=== PATIENT | male | born 1995 | race African-American/Black ===

== ENCOUNTER 2018-08-19 17:46 | Inpatient (IN) | payer OTHER ==
[~2018-08-19] VITALS: Ht 190.5 cm; Wt 88.5 kg
[2018-08-19 20:12] LABS: HEMATOCRIT 41.8 % (42.0-52.0); HEMOGLOBIN 13.4 g/dl (13.5-17.5); MEAN CORPUSCULAR HEMOGLOBIN 27.4 pg (27.0-33.0); MEAN CORPUSCULAR HGB CONC 32.1 g/dl (32.0-36.5); MEAN CORPUSCULAR VOLUME 85.5 fl (80.0-96.0); PLATELET COUNT, AUTOMATED 215 10^3/uL (150-450); RED BLOOD COUNT 4.89 10^6/uL (4.30-6.10); WHITE BLOOD COUNT 5.5 10^3/uL (4.0-10.0)
[2018-08-19 20:42] LABS: AMPHETAMINES LEVEL URINE NEGATIVE (NEGATIVE); BARBITURATES URINE NEGATIVE (NEGATIVE); BENZODIAZEPINES URINE NEGATIVE (NEGATIVE); CANNABINOIDS URINE NEGATIVE (NEGATIVE); COCAINE METABOLITE URINE NEGATIVE (NEGATIVE); METHADONE URINE NEGATIVE (NEGATIVE); OPIATES URINE NEGATIVE (NEGATIVE); PHENCYCLIDINE URINE NEGATIVE (NEGATIVE)
[2018-08-19 21:04] LABS: ACETAMINOPHEN LEVEL < 2.0 UG/ML (10.0-30.0); ALT/SGPT 24 U/L (12-78); BILIRUBIN,DIRECT 0.1 MG/DL (0.0-0.2); BILIRUBIN,TOTAL 0.4 MG/DL (0.2-1.0); BLOOD UREA NITROGEN 14 MG/DL (7-18); CALCIUM LEVEL 9.1 MG/DL (8.5-10.1); CARBON DIOXIDE LEVEL 27 MEQ/L (21-32); CHLORIDE LEVEL 105 MEQ/L (98-107); CREATININE FOR GFR 1.07 MG/DL (0.70-1.30); ETHYL ALCOHOL (ETHANOL) < 0.003 % (0.000-0.010); GLOMERULAR FILTRATION RATE > 60.0 (>60); GLUCOSE, FASTING 114 MG/DL (70-100); POTASSIUM SERUM 3.8 MEQ/L (3.5-5.1); SALICYLATE LEVEL < 1.7 MG/DL (5.0-30.0); SODIUM LEVEL 138 MEQ/L (136-145); TOTAL PROTEIN 7.8 GM/DL (6.4-8.2)
[2018-08-19] MEDS ORDERED: ACETAMINOPHEN TAB 650MG DOSE (2X325MG) PO PRN (22:00)
[2018-08-19] MEDS ORDERED: MAALOX 30 ML SUSP *UDC PO PRN (22:00)
[2018-08-19] MEDS ORDERED: MOM 30ML SUSPENSION UDC PO PRN (22:00)
[2018-08-19] MEDS ORDERED: traZODone 50 MG TAB PO PRN (22:00)
[2018-08-20 00:14] VITALS: BP 122/76
[2018-08-20 06:35] VITALS: BP 133/70
--- NOTE | 2018-08-20 09:50 | MHHPEPDOC ---
General Date Of Admission: August 20, 2018 Legal Status: 9.39 Chief Complaint It is a big misunderstanding. I don't know why I am here ". History of Present Illness HISTORY OF THE PRESENT ILLNESS: Patient is a 22 -year-old , male, who was born in [place]. In the past he has lived in [place] in [place]. He states that this is his first psychiatric admission. He states people thought he was suicidal. He works with [employer] in the [employer] and [employer]. He said he said things certain people and they took it the wrong way spoke with his mother and friends. He states, "I just wanted to go to sleep". Patient in the emergency room confirmed a child of his had , but he did not mention that in the present history taken today. He stated that "I found out something that hurt my heart". Apparently, a girl who he does not want to tell her name sent a picture to another person. The patient himself, but hacked this lady's Wire[employer] grandma count including pictures and messages. Apparently this girl and sent pictures to another man. States he "F. The relationship. He states that he also was seeing other women or communicating with other women, which caused relationship problems. Apparently he had been notified, family and friends that he "wanted to go to sleep". And they notified the Nina, who notified MPs and he was sent here to the ER. He states he did not communicate well. In the ER and ER note, was read and given enough reason to admit the patient. His medical history is negative.. His surgical history is positive for broken left hand when he was younger, aged 19. Medication history. He just takes protein supplements. His legal history is negative. He states [employer] life is good, but he does not want to continue in the [employer]. He would like to go into construction. He states he drinks a lot. 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 He drinks Makayla and drinks frequently to drunkenness. His drug history is negative. Neurological history is negative attribute history is positive for being bullied in middle school. This is his first psychiatric hospitalization. He is presently single. He states he has no children but ER note states that a child with his diet. His mother and father are alive. His mother lives in [facility]. She is and he has a stepfather. He also has a half sister. Psychiatric Review of Systems Depression (2 or more weeks): suicidal thoughts Bing (4 or more days of): denies Psychosis: denies PTSD: denies Anxiety: denies Past Psychiatric History Previous Psychiatric Diagnosis: None. Previous Psychiatric Admissions:. None. Suicide Attempts:. None. Psychiatric Follow-up:. None. Psychiatric medications:. None. Past Medical History Medical Problems None Head Injury: No Seizures: No Hospitalizations: No Surgeries: Yes Family Medical/Psychiatric HX Psychiatric Disorders: No Addiction: No Suicide Attemps/Completions: No Addiction History alcohol, denies Social History Childhood: None. Abuse/Trauma: On. Current Living Situation: Or drug. Education: Some college. Employment: [employer]. Social Support:, Mother. Legal: none Marital. None Mental Status Examination General Appearance: well groomed Build: tall Demeanor: average Eye Contact: average Activity: average Behavior: cooperative, resistant Speech: clear Mood: euthymic Mood Neutral Affect: constricted Thought Process: logical/linear Thought Content (Delusions): none reported Thought Content (Other): none reported Thought Content (Aggressive): none reported Perception (Hallucinations): none reported Perception (Other): none reported Cognition (Impairment of): none reported Cognition(Intelligence Est.): average Oriented: Oriented times three Insight: poor Judgment: Poor Psychosis: Denies Diagnoses Adjustment disorder with depressed mood A-FIB/CHADSVASC A-FIB History Current/History of A-Fib/PAF?: No Current Oral Anticoagulant The: No Treatment Treatment ordered: NONE Initial Treatment Plan 1. Patient was admitted on a [9.39] status. 2. Complete history was obtained. 3. With patients permission, family will be contacted and database will be expanded. 4. Patients medication regimen will be reviewed and changed accordingly. 5. Patient will be provided with protected environment. 6. Patient will be treated with individual, group, and milieu therapies. 7. Patient will receive supportive psych-education. 8. Discharge planning will commence immediately. 9. Outpatient follow-up treatment will be strongly recommended. 10. The initial treatment plan will focus initially on: * Depression. * Risk for suicide. * Substance abuse. ESTIMATED LENGTH OF STAY: - DAYS. TIME SPENT COUNSELING AND COORDINATING INITIAL CARE: minutes. Vital Signs Vital Signs Date Time Temp Pulse Resp B/P (MAP) Pulse Ox O2 Delivery O2 Flow Rate FiO2 5/21/19 08:34 Room Air 08/20/18 06:35 98.1 59 14 133/70 (91) 08/20/18 00:14 97 Laboratory Data 24H Labs Laboratory Tests 2 08/19/18 19:44: Nucleated Red Blood Cells % (auto) 0.0, Anion Gap 6L, Glomerular Filtration Rate > 60.0, Calcium Level 9.1, Aspartate Amino Transf (AST/SGOT) 31, Alanine Aminotransferase (ALT/SGPT) 24, Alkaline Phosphatase 91, Total Bilirubin 0.4, Direct Bilirubin 0.1, Total Protein 7.8, Albumin 4.0, Albumin/Globulin Ratio 1.05, Thyroid Stimulating Hormone (TSH) 2.670, Salicylates Level < 1.7L, Urine Amphetamines Screen NEGATIVE, Urine Benzodiazepines Screen NEGATIVE, Urine Opiates Screen NEGATIVE, Urine Methadone Screen NEGATIVE, Acetaminophen Level < 2.0L, Urine Barbiturates Screen NEGATIVE, Urine Phencyclidine Screen NEGATIVE, Urine Cocaine Metabolite Screen NEGATIVE, Urine Cannabinoids Screen NEGATIVE, Ethyl Alcohol Level < 0.003 CBC/BMP Laboratory Tests 08/19/18 19:44 Red Blood Count 4.89, Mean Corpuscular Volume 85.5, Mean Corpuscular Hemoglobin 27.4, Mean Corpuscular Hemoglobin Concent 32.1, Red Cell Distribution Width 14.6 H Medications No Active Prescriptions or Reported Meds Allergies Coded Allergies: No Known Allergies (Unverified , 08/19/18) SHANNON CANO MD August 20, 2018 09:50
[2018-08-20 18:00] VITALS: BP 125/68
--- NOTE | 2018-08-20 21:54 | HPE ---
DATE OF ADMISSION: 08/19/2018 HISTORY OF PRESENT ILLNESS (HPI): Please refer to the psychiatric history and evaluation for further details on this admission. This examination and history is intended for medical issues, which may need treatment, followup or consultation on this 22-year-old male. ALLERGIES: No known allergies. PRIMARY CARE PROVIDER: Fatou. 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 Ethanol (EtOH) on the weekends if he goes out. He will drink two or three shots. Smokes none. Recreational drug use: None. PAST MEDICAL HISTORY: Negative. PAST SURGICAL HISTORY: Repair of a fractured left hand. HOME MEDICATIONS: None. FAMILY HISTORY: Mother is alive and well . Father is alive and well. LABORATORY STUDIES: White blood cell (WBC) 5.5, hemoglobin 14.4, hematocrit 41.8, platelets 215. Electrolytes were normal. BUN was 14. Creatinine was 1.08. Nonfasting glucose 114. Thyroid-stimulating hormone (TSH) 2.67. Urine toxicology was negative. A 10-systems review was done and was unremarkable. PHYSICAL EXAMINATION: A 22-year-old, cooperative male, in no acute distress. Height 75 inches. Weight of 88.5 kg. Body mass index (BMI) 24.4. Blood pressure 133/70. Pulse 60. Respirations 14. Temperature 98.1. Oxygen saturation 98% on room air. Patient is alert and oriented times three. Pupils equal and react to light. Extraocular movements (EOMS) intact. Cornea and sclerae clear. Conjunctiva was normal. No facial asymmetry. Pharynx, tongue and gums pink and moist. Tongue is midline. Neck is supple without lymphadenopathy. No thyromegaly. No goiter. Carotids 2+ without bruit. Chest: Clear to auscultation, without wheeze or retraction. Heart is regular. Abdomen: Benign. Bowel sounds positive. Genitourinary ()/rectal: Not done. Extremities: Show equal strength, full range of motion. No cyanosis, clubbing or edema. Peripheral pulse equal and palpable bilaterally. Skin is warm and dry. Cranial nerves II-XII are grossly intact. IMPRESSION/PLAN: Psychiatric: Plan per psychiatry. No acute medical issues.
[2018-08-21 06:41] VITALS: BP 132/83
--- NOTE | 2018-08-21 14:00 | MHIPNPDOC ---
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 NEW TEST RESULTS: None. CURRENT MEDICATIONS: See below. MENTAL STATUS EXAMINATION: Patient is a. 22-year old male, who is admitted for making suicidal statements after having relationship difficulties. Speech: Is, sparse. Language skills are, intact. Thought processes including:. No disturbance. Thought content:. No disturbance. Abstract reasoning, and computation: Able to abstract. Description of associations: Was association. Description of abnormal or psychotic thoughts:, No psychotic thought. Judgment: Intact. Insight:. Poor. Orientation: Intact. Recent and remote memory: Intact. Attention span and concentration:. No disturbance. Language:. No disturbance. Fund of knowledge: Complete Mood: Low. Affect: Congruent. DIAGNOSES: 1.. Adjustment disorder with depressed mood. 2., Relationship difficulties. 3., Job stress ASSESSMENT as above MANAGEMENT PLAN:. Discharge planning and return to outpatient treatment. TIME SPENT: minutes. Vital Signs Vital Signs Date Time Temp Pulse Resp B/P (MAP) Pulse Ox O2 Delivery O2 Flow Rate FiO2 08/21/18 08:27 Room Air 08/21/18 06:41 97.5 72 20 132/83 (99) 08/20/18 00:14 97 Current Medications Current Medications Acetaminophen (Tylenol Tab) 650 mg Q6HP PRN PO HEADACHE or DISCOMFORT; Start 08/19/18 at 22:00 Al Hydrox/Mg Hydrox/Simethicone (Mylanta) 30 ml Q4HP PRN PO HEARTBURN/ INDIGESTION; Start 08/19/18 at 22:00 Home Med (Med Rec Complete!) ASDIRECTED XX ; Start 08/19/18 at 21:15; Stop 08/19/18 at 21:15; Status DC Magnesium Hydroxide (Milk Of Magnesia) 30 ml DAILYPRN PRN PO CONSTIPATION; Start 08/19/18 at 22:00 Trazodone HCl (Desyrel) 50 mg QHSP PRN PO INSOMNIA; Start 08/19/18 at 22:00 Allergies Coded Allergies: No Known Allergies (Unverified , 08/19/18) A-FIB/CHADSVASC A-FIB History Current/History of A-Fib/PAF?: No Current Oral Anticoagulant The: No Treatment Treatment ordered: NONE SHANNON CANO MD August 21, 2018 14:00
[2018-08-21 18:34] VITALS: BP 143/76
[2018-08-22 06:25] VITALS: BP 119/73
--- NOTE | 2018-08-22 16:27 | MHDSPDOC ---
[facility] Discharge Summary Discharge Summary DATE OF ADMISSION: August 19, 2018 at 21:49 DATE OF DISCHARGE: August 22, 2018 at 11:07 DISCHARGE DIAGNOSES: 1. Depressive disorder. 2., Relationship stressors. REASON FOR ADMISSION:. Patient voiced suicidal thoughts following difficulties with girlfriend CONSULTANTS INVOLVED:. None TREATMENT AND PROGRESS ON THE UNIT : Observation. HOSPITAL COURSE: Unremarkable. 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 Mood improved. Speech is. Normal. Language skills are intact. Thought processes including:. No disturbance of thought process. Thought content: No gross abnormality. Abstract reasoning, and computation: Abstract reasoning isn't strong. Description of associations:. No loose associations. Description of abnormal or psychotic thoughts:. No psychotic thought. Judgment:, Poor. Insight:, Poor. Orientation to intact. Recent and remote memory: Intact. Attention span and concentration: Intact. Language: As above. Fund of knowledge:. Intact. Mood: Euthymic. Affect:, Congruent. MEDICATIONS ON DISCHARGE: -. No medications - PLAN/FOLLOWUP ARRANGEMENTS: [facility]. The amount of time spent in the coordination of care for this patient was approximately 30 minutes. Vital Signs/I&Os Vital Signs Date Time Temp Pulse Resp B/P (MAP) Pulse Ox O2 Delivery O2 Flow Rate FiO2 08/22/18 06:25 97.8 79 20 119/73 (88) 08/21/18 08:27 Room Air 08/20/18 00:14 97 Medications No Active Prescriptions or Reported Meds Allergies Coded Allergies: No Known Allergies (Unverified , 08/19/18) SHANNON CANO MD August 22, 2018 16:27
== END 2018-08-22 11:07 | disposition home or self-care (01) | DRG 881 ==
LOC: M ED 17:46 → M ED INP 21:49 → M PSY 23:34
PROVIDERS: ADMIT Psychiatry & Neurology Psychiatry; ATTEND Psychiatry & Neurology Child & Adolescent Psychiatry
DX: F32.9 Major depressive disorder, single episode, unspecified (principal); R45.851 Suicidal ideations